=== PATIENT | female | born 1985 | race Caucasian/White ===

== ENCOUNTER 2017-01-29 19:53 | Emergency (ER) | payer SELFPAY ==
[~2017-01-29] VITALS: Ht 172.7 cm; Wt 81.6 kg
[2017-01-29 20:05] VITALS: BP 142/63
[2017-01-29] MEDS ORDERED: METOCLOPRAMIDE 10 MG TABLET PO ONE (21:00)
[2017-01-29] MEDS ORDERED: ACETAMINOPHEN 500 MG TABLET PO ONE (21:00)
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
== END 2017-01-29 21:15 | disposition home or self-care (01) ==
LOC: ER 19:53
DX: R51 Headache (principal); G43.909 Migraine, unspecified, not intractable, without status migrainosus; F41.9 Anxiety disorder, unspecified; F31.9 Bipolar disorder, unspecified; G93.2 Benign intracranial hypertension; F11.10 Opioid abuse, uncomplicated; F15.10 Other stimulant abuse, uncomplicated; Z88.5 Allergy status to narcotic agent; Z88.6 Allergy status to analgesic agent
CPT/HCPCS: 99281